=== PATIENT | male | born 1960 | race Caucasian/White ===

== ENCOUNTER 2022-03-01 19:31 | Emergency (ER) | payer OTHER ==
[~2022-03-01] VITALS: Ht 177.8 cm; Wt 93.0 kg
[2022-03-01 19:50] VITALS: BP 190/120
--- NOTE | 2022-03-01 19:53 | NUR ---
TO LOBBY A/W BED AMBULATORY
[2022-03-01] MEDS ORDERED: KETOROLAC 15 MG/ML VIAL IM ONE (21:10)
[2022-03-01] MEDS ORDERED: LIDOCAINE 5% 1 EA PATCH TP SCH (21:10)
[2022-03-01 22:17] LABS: ANION GAP 12.6 (8-16); CARBON DIOXIDE 31.9 mmol/L (21-32); CREATININE 1.1 mg/dL (0.6-1.3); POTASSIUM 4.5 mmol/L (3.5-5.1)
[2022-03-01] MEDS ORDERED: CYCL-711 PO (22:50)
[2022-03-01] MEDS ORDERED: PRED20TA5 PO (22:50)
[2022-03-01] MEDS ORDERED: LISI5TAB18 PO (22:50)
--- NOTE | 2022-03-01 23:00 | NUR ---
FIRST CONTACT FOR DISCHARGE. B/P 215/118 DR. JIMENEZ NOTIFIED. WILL ORDER LISINOPRIL 20MG. AND OK TO DISCHARGE PT UNDERSTANDS IMPORTANCE OF FOLLOW UP AND PT WILL BE GIVEN A RX FOR B/P
[2022-03-01] MEDS ORDERED: lisinopriL 20 MG TAB PO ONE (23:05)
[2022-03-01] MEDS ORDERED: lisinopriL 20 MG TAB ONE (23:05)
[2022-03-01 23:08] VITALS: BP 215/118
--- NOTE | 2022-03-01 23:08 | NUR ---
Patient discharged with v/s stable. Written and verbal after care instructions given and explained. Patient alert, oriented and verbalized understanding of instructions. Ambulatory with steady gait. All questions addressed prior to discharge. ID band removed. Patient advised to follow up with PMD. Rx of LISINOPRIL, FLEXERIL, PREDNISONE given. Patient educated on indication of medication including possible reaction and side effects. Opportunity to ask questions provided and answered.
[2022-03-02] MEDS ORDERED: IBUP-2213 PO (19:44)
== END 2022-03-01 23:08 | disposition home or self-care (01) ==
LOC: MED 19:31
DX: I10 Essential (primary) hypertension (principal); M54.32 Sciatica, left side
CPT/HCPCS: 36415; 71045; 80048; 93005; 96372; 99285; J1885

== ENCOUNTER 2022-03-02 17:34 | Emergency (ER) | payer OTHER ==
[~2022-03-02] VITALS: Ht 177.8 cm; Wt 93.0 kg
[~2022-03-02 17:34] MED LIST: CYCL-711 PO; LISI5TAB18 PO; PRED20TA5 PO
[2022-03-02 17:41] VITALS: BP 204/108
--- NOTE | 2022-03-02 17:51 | NUR ---
61/M WALKED IN C/O ELEVATED BP OF OVER 200 AT HOME TODAY ACCOMPANIED BY HEADACHE. PT WAS SEEN HERE YESTERDAY AND WAS DX HTN AND WAS PX LISINOPRIL 5MG AND STARTED TAKING THE MED YESTERDAY. PT REPORTS TAKING LISINOPRIL LAST NIGHT AND TODAY @ 11AM AND BLOOD PRESSURE WAS STILL ELEVATED. ON MONITOR, ROOM AIR, NO ACUTE DISTRESS NOTED. PMH: HTN NKA
[2022-03-02] MEDS ORDERED: LABETALOL 20 MG/4 ML VIAL IVP ONE (17:55)
--- NOTE | 2022-03-02 18:04 | NUR ---
EKG DONE AT BEDSIDE. CLINICAL BUSINESS ANALYST AT BEDSIDE FOR BLOOD DRAW.
[2022-03-02 18:20] LABS: BASOPHILS % (AUTO) 0.2 % (0.0-2.0); EOSINOPHILS % (AUTO) 0.1 % (0.0-4.0); HEMATOCRIT 49.9 % (36-52); HEMOGLOBIN 17.8 g/dL (12.0-18.0); LYMPHOCYTES # (AUTO) 0.9 K/uL (2.0-11.5); LYMPHOCYTES % (AUTO) 8.2 % (20.5-51.1); MEAN CORPUSCULAR HEMOGLOBIN 33 pg (27-31); MEAN CORPUSCULAR HGB CONC 36 g/dL (33-37); MEAN CORPUSCULAR VOLUME 91.2 fL (80-94); MONOCYTES # (AUTO) 0.7 K/uL (0.8-1.0); MONOCYTES % (AUTO) 6.5 % (1.7-9.3); NEUTROPHILS # (AUTO) 9.7 K/uL (1.8-7.7); PLATELET COUNT (AUTO) 357 K/uL (140-450); RED BLOOD CELL COUNT(AUTO) 5.47 MIL/uL (4.20-6.10); RED CELL DISTRIBUTION WIDTH 12.9 % (11.6-13.7); WHITE BLOOD COUNT (AUTO) 11.4 K/uL (4.8-10.8)
[2022-03-02] MEDS ORDERED: MORPHINE SULFATE 4 MG/ML SYR IVP ONE (18:20)
[2022-03-02 18:50] LABS: ALBUMIN 4.7 g/dL (3.4-5.0); ANION GAP 15.1 (8-16); ASPARTATE AMINOTRANSFERASE 22 U/L (15-37); CARBON DIOXIDE 28.2 mmol/L (21-32); CHLORIDE 102 mmol/L (98-107); CREATININE 1.1 mg/dL (0.6-1.3); GFR ARICAN-AMERICAN 88 mL/min (>90); GLUCOSE 121 mg/dL (74-106); POTASSIUM 4.3 mmol/L (3.5-5.1); SODIUM SERUM 141 mmol/L (136-145); TOTAL BILIRUBIN 1.2 mg/dL (0.0-1.0); UREA NITROGEN, BLOOD 26 mg/dL (7-18)
--- NOTE | 2022-03-02 19:20 | NUR ---
hand off report given to Chace lorenzo
[2022-03-02] MEDS ORDERED: IBUP-2213 PO (19:44)
[2022-03-02 20:22] VITALS: BP 129/81
== END 2022-03-02 20:20 | disposition home or self-care (01) ==
LOC: MED 17:34
DX: M54.40 Lumbago with sciatica, unspecified side (principal); I10 Essential (primary) hypertension; R51.9 Headache, unspecified; Z79.899 Other long term (current) drug therapy
CPT/HCPCS: 36415; 80053; 84484; 85025; 93005; 96374; 96375; 99284; J2270; J3490